=== PATIENT | female | born 1960 | race Caucasian/White ===

== ENCOUNTER 2018-06-23 21:02 | Emergency (ER) | payer SELFPAY ==
[~2018-06-23] VITALS: Ht 165.1 cm; Wt 61.7 kg
[2018-06-23 21:12] VITALS: Ht 165.1 cm; Wt 61.7 kg
[2018-06-23 23:19] VITALS: BP 143/63
== END 2018-06-23 23:23 | disposition home or self-care (01) ==
LOC: ED 21:02
DX: R51 Headache (principal); R11.2 Nausea with vomiting, unspecified
CPT/HCPCS: J0780; J1885; J3010; Q0162